=== PATIENT | female | born 1970 | race Caucasian/White ===

== ENCOUNTER 2016-08-29 10:17 | Emergency (ER) | payer OTHER ==
[~2016-08-29] VITALS: Ht 165.1 cm; Wt 66.0 kg
[~2016-08-29 10:17] MED LIST: ACET500C5 PO; AMLO5TAB4 PO; AMO500 PO; ATEN-51 PO; GUAI5LIQ8 PO; IBUP-1542 PO; NAPR-260 PO; ONDA4TAB35 PO; OSLT75C PO
[2016-08-29 10:20] VITALS: Ht 165.1 cm; Wt 66.0 kg
[2016-08-29] MEDS ORDERED: IBUPROFEN 600 MG TAB PO ONE (11:30)
--- NOTE | 2016-08-29 11:30 | RADRPT ---
PROCEDURE: XR Chest. CLINICAL INDICATION: cough TECHNIQUE: Single frontal view of the chest was obtained COMPARISON: 06/07/2015 FINDINGS: The heart and mediastinum are within normal limits. The lungs are clear. There is no pleural effusion or pneumothorax. IMPRESSION: No definite abnormalities are identified. RPTAT:AAJJ Liban Chiang Physician Date Time Electronically viewed and signed by Liban Chiang Physician on 08/29/2016 11:29 FÁTIMA/
[2016-08-29 11:33] LABS: URINE BLOOD (Dip) POC Negative (NEGATIVE)
[2016-08-29] MEDS ORDERED: ACET325T33 PO (12:57)
[2016-08-29] MEDS ORDERED: IBUP-1542 PO (12:57)
[2016-08-29] MEDS ORDERED: AZIT250T94 PO (12:57)
[2016-08-29 13:12] VITALS: BP 134/80; PULSE 78; RESP 20; TEMP 99
--- NOTE | 2016-08-29 14:30 | ERD ---
ER Documentation Chief Complaint Date/Time DATE: 08/29/16 TIME: 14:21 Chief Complaint fever , body ache , chills since last night HPI This is a 45-year-old female with a history of hypertension who presents to the ED with fever, generalized body ache, sore throat since last night. Patient received Tylenol last night. Denies nausea, vomiting, headache , cough, abdominal pain, shortness of breath, chest pain, dysuria or diarrhea. Denies any recent sick contacts or foreign travel. Patient states that she did not take any flu shot for the past season. Denies smoking, EtOH or illicit drug use. ROS All systems reviewed and are negative except as per history of present illness. Medications Home Meds Active Scripts Acetaminophen* (Tylenol*) 325 Mg Tablet, 2 TAB PO Q4 Y for PAIN AND OR ELEVATED TEMP, #20 TAB Prov:JAK BOWEN 08/29/16 Ibuprofen* (Motrin*) 600 Mg Tab, 600 MG PO Q6H Y for PAIN AND OR ELEVATED TEMP, #30 TAB Prov:JAK BOWEN 08/29/16 Azithromycin* (Zithromax*) 250 Mg Tablet, 250 MG PO .ZPACK DIRECTED, #6 TAB TAKE 500 MG (2 TABS) THE FIRST DAY THEN 250 MG (1 TAB) DAYS 2-5 Prov:JAK BOWEN 08/29/16 Amoxicillin* (Amoxicillin*) 500 Mg Cap, 500 MG PO TID for 10 Days, CAP Prov:PRISCILA ANDERSON DO 06/20/16 Oseltamivir Phosphate* (Tamiflu*) 75 Mg Capsule, 75 MG PO BID for 5 Days, CAP Prov:PATT SUBRAMANIAN PA-C 06/07/15 Guaifenesin/Codeine Phosphate (Guaiatussin AC Liquid) 5 Ml Liquid, 5 ML PO QHS, #120 ML Prov:PATT SUBRAMANIAN PA-C 06/07/15 Acetaminophen* (Tylophen*) 500 Mg Capsule, 1 CAP PO Q6H Y for PAIN AND OR ELEVATED TEMP, #20 CAP Prov:PATT SUBRAMANIAN PA-C 06/07/15 Ibuprofen* (Motrin*) 600 Mg Tab, 600 MG PO Q6, #30 TAB Prov:PATT SUBRAMANIAN PA-C 06/07/15 Ondansetron Hcl* (Zofran* ODT) 4 mg -ODT Tab.disper, 4 MG PO Q4H Y for NAUSEA AND OR VOMITING for 5 Days, TAB Prov:MAN MINAYA 03/08/15 Naproxen* (Naprosyn*) 500 Mg Tablet, 500 MG PO BID Y for PAIN AND/OR INFLAMMATION, #20 TAB Prov:KINA AMOS 09/21/14 Reported Medications Atenolol* (Atenolol*) 25 Mg Tablet, 25 MG PO DAILY, TAB 09/21/14 Amlodipine Besylate* (Norvasc*) 5 Mg Tablet, 5 MG PO DAILY, TAB 09/21/14 Allergies Allergies: Coded Allergies: No Known Drug Allergies (Verified Allergy, Mild, 09/21/14) PMhx/Soc History of Surgery: Yes (c section) Anesthesia Reaction: No Hx Neurological Disorder: No Hx Respiratory Disorders: No Hx Cardiac Disorders: Yes (htn) Hx Psychiatric Problems: No Hx Miscellaneous Medical Probl: No Hx Alcohol Use: No Hx Substance Use: No Hx Tobacco Use: No Smoking Status: Never smoker Physical Exam Vitals Vital Signs Date Time Temp Pulse Resp B/P Pulse Ox O2 Delivery O2 Flow Rate FiO2 08/29/16 13:12 99.0 78 20 134/80 99 Room Air 08/29/16 10:20 102.4 91 16 163/90 99 Physical Exam Physical Exam CONST: Well-developed, well-nourished, in no acute distress. Nontoxic in appearance. HEENT: Erythematous oropharynx with left tonsillar swelling and exudates. Normal conjunctiva. EOM intact. TM intact. External ear is normal. Moist mucous membranes. Supple neck. No meningismus. No submandibular induration. RESP: Clear to auscultation bilaterally. No wheezing. CARDIO: Regular rate and rhythm, no murmurs. ABD: Soft, non tender, non distended. Normal bowel sounds. No McBurney's point tenderness. No guarding or rigidity. No peritoneal signs. SKIN: No petechiae or rashes. BACK: No midline or flank tenderness. EXT: No cyanosis or edema. Distal pulses equal and bilateral. NEURO: Awake and alert, appropriate for age. 5/5 strength in all extremities. Normal speech. Steady gait. Results 24 hrs Laboratory Tests Test 08/29/16 11:35 Bedside Urine pH (LAB) 7.0 Bedside Urine Protein (LAB) Negative Bedside Urine Glucose (UA) Negative Bedside Urine Ketones (LAB) Negative Bedside Urine Blood Negative Bedside Urine Nitrite (LAB) Negative Bedside Urine Leukocyte Esterase (L Negative Current Medications Medications (Trade) Dose Ordered Sig/Delta Route PRN Reason Start Time Stop Time Status Last Admin Dose Admin Ibuprofen (Motrin) 600 mg ONCE ONCE PO 08/29/16 11:30 08/29/16 11:31 DC 08/29/16 11:27 PROCEDURE: XR Chest. CLINICAL INDICATION: cough TECHNIQUE: Single frontal view of the chest was obtained COMPARISON: 06/07/2015 FINDINGS: The heart and mediastinum are within normal limits. The lungs are clear. There is no pleural effusion or pneumothorax. IMPRESSION: No definite abnormalities are identified. RPTAT:AAJJ Physician Karla Date Time Electronically viewed and signed by Liban Chiang Physician on 08/29/2016 11:29 Procedures/[facility] EMERGENCY DEPARTMENT COURSE/MEDICAL DECISION MAKING This is a 45-year-old female who comes to the emergency room secondary to complaints of fever, chills, generalized body ache and sore throat since last night. The patient was given ibuprofen for a temp of 102.4. On re-evaluation, temperature improved to 99. Influenza a and B was ordered and is negative. Chest x-ray was ordered to rule out pneumonia and interpreted by a radiologist. Result is negative. Physical exam shows left tonsillar erythema and exudates. I believe this is the source of her fever. Patient's negative for influenza or pneumonia. My primary diagnosis is pharyngitis. Secondary diagnosis is fever. Differential diagnoses considered but not limited to pneumonia, bronchitis, influenza, upper respiratory infection, asthma, pharyngitis, peritonsillar abscess, otitis media, otitis externa.. Pt is hemodynamically stable upon reassessment. There are no new complaints during the ED course. The patient was discharged for outpatient management with a prescription for azithromycin, ibuprofen and Tylenol. The patient was advised to followup with their PMD in 1-2 days and to return to the Emergency Department if there are any new or worsening symptoms. The patient understood and agreed with the diagnosis, treatment and plan. Patient is stable for discharge at this time. Departure Diagnosis: Primary Impression: Pharyngitis Pharyngitis/tonsillitis etiology: unspecified etiology Qualified Code: J02.9 - Pharyngitis, unspecified etiology Additional Impression: Fever Fever type: unspecified Qualified Code: R50.9 - Fever, unspecified fever cause Condition: Stable Patient Instructions: Pharyngitis, Strep (Presumed) Additional Instructions: Llame a sevilla mdico de atencin primaria maana para hacer jamir marlee jasmyn los pr ximos to 1-2. Volver al Departamento de la emergencia inmediatamente si tiene cualquier s ntoma nuevo o que empeora. [place] todos los medicamentos clint lo indique. JAK BOWEN August 29, 2016 14:30
== END 2016-08-29 13:23 | disposition home or self-care (01) ==
LOC: FTE 10:17
DX: J02.9 Acute pharyngitis, unspecified (principal); I10 Essential (primary) hypertension
CPT/HCPCS: 71010; 81003; 87400; Z7502; Z7610

== ENCOUNTER 2016-11-14 22:20 | Emergency (ER) | payer OTHER ==
[~2016-11-14] VITALS: Ht 160 cm; Wt 98.1 kg
[~2016-11-14 22:20] MED LIST changes: +ACET325T33 PO; +AZIT250T94 PO
[2016-11-14 22:23] VITALS: Ht 160 cm; Wt 98.1 kg
--- NOTE | 2016-11-14 22:37 | ERA ---
ER Documentation Chief Complaint Date/Time DATE: 11/14/16 TIME: 22:36 Chief Complaint high bp HPI The patient is a 46-year-old female, presenting to the ER because of high blood pressure at home. She has been taking Norvasc 10 mg and atenolol 25 mg daily for many years and has not seen her physician for the last 6 months to recheck her blood pressure. She has been under a lot of stress and wanted to have her blood pressure rechecked today in the ER. She denies any headache, syncope, near syncope, neck pain, chest pain, dyspnea, abdominal pain, vomiting, dysuria , diarrhea. She does not smoke nor drink Past medical history: Hypertension Past surgical history: Four ROS All systems reviewed and are negative except as per history of present illness. Medications Home Meds Active Scripts Acetaminophen* (Tylenol*) 325 Mg Tablet, 2 TAB PO Q4 Y for PAIN AND OR ELEVATED TEMP, #20 TAB Prov:JAK BOWEN 08/29/16 Ibuprofen* (Motrin*) 600 Mg Tab, 600 MG PO Q6H Y for PAIN AND OR ELEVATED TEMP, #30 TAB Prov:JAK BOWEN 08/29/16 Azithromycin* (Zithromax*) 250 Mg Tablet, 250 MG PO .ZPACK DIRECTED, #6 TAB TAKE 500 MG (2 TABS) THE FIRST DAY THEN 250 MG (1 TAB) DAYS 2-5 Prov:JAK BOWEN 08/29/16 Amoxicillin* (Amoxicillin*) 500 Mg Cap, 500 MG PO TID for 10 Days, CAP Prov:PRISCILA ANDERSON DO 06/20/16 Oseltamivir Phosphate* (Tamiflu*) 75 Mg Capsule, 75 MG PO BID for 5 Days, CAP Prov:PATT SUBRAMANIAN-C 06/07/15 Guaifenesin/Codeine Phosphate (Guaiatussin AC Liquid) 5 Ml Liquid, 5 ML PO QHS, #120 ML Prov:PATT SUBRAMANIAN-C 06/07/15 Acetaminophen* (Tylophen*) 500 Mg Capsule, 1 CAP PO Q6H Y for PAIN AND OR ELEVATED TEMP, #20 CAP Prov:PATT SUBRAMANIAN-C 06/07/15 Ibuprofen* (Motrin*) 600 Mg Tab, 600 MG PO Q6, #30 TAB Prov:PATT SUBRAMANIANC 06/07/15 Ondansetron Hcl* (Zofran* ODT) 4 mg -ODT Tab.disper, 4 MG PO Q4H Y for NAUSEA AND OR VOMITING for 5 Days, TAB Prov:MAN MINAYA Laverne 03/08/15 Naproxen* (Naprosyn*) 500 Mg Tablet, 500 MG PO BID Y for PAIN AND/OR INFLAMMATION, #20 TAB Prov:BETTEKINA DAMON 09/21/14 Reported Medications Atenolol* (Atenolol*) 25 Mg Tablet, 25 MG PO DAILY, TAB 09/21/14 Amlodipine Besylate* (Norvasc*) 5 Mg Tablet, 5 MG PO DAILY, TAB 09/21/14 Allergies Allergies: Coded Allergies: No Known Drug Allergies (Verified Allergy, Mild, 09/21/14) PMhx/Soc History of Surgery: Yes (c section) Anesthesia Reaction: No Hx Neurological Disorder: No Hx Respiratory Disorders: No Hx Cardiac Disorders: Yes (htn) Hx Psychiatric Problems: No Hx Miscellaneous Medical Probl: No Hx Alcohol Use: No Hx Substance Use: No Hx Tobacco Use: No Physical Exam Vitals Vital Signs Date Time Temp Pulse Resp B/P Pulse Ox O2 Delivery O2 Flow Rate FiO2 11/14/16 23:30 66 17 145/91 100 Room Air 11/14/16 23:00 73 14 157/98 100 Room Air 11/14/16 22:43 85 17 168/98 100 Room Air 11/14/16 22:23 98.1 75 18 188/102 100 Physical Exam Const: No acute distress. Very anxious Head: Atraumatic. Eyes: Normal Conjunctiva. ENT: Normal External Ears, Nose and Mouth. Neck: Full range of motion. No meningismus. Resp: Clear to auscultation bilaterally. Cardio: Regular rate and rhythm. Abd: Soft, non distended, normal bowel sounds, non tender. Skin: No petechiae or rashes. Back: No midline or flank tenderness. Ext: No cyanosis, or edema. Neur: Awake and alert. No focal deficit Psych: Normal Mood and Affect. Result Diagram: 11/14/167 11/14/162256 Results 24 hrs Laboratory Tests Test 11/14/16 22:57 White Blood Count 7.310^3/ul Red Blood Count 4.3110^6/ul Hemoglobin 12.6g/dl Hematocrit 36.8% Mean Corpuscular Volume 85.4fl Mean Corpuscular Hemoglobin 29.2pg Mean Corpuscular Hemoglobin Concent 34.2g/dl Red Cell Distribution Width 13.1% Platelet Count 90221^3/UL Mean Platelet Volume 10.3fl Neutrophils % 58.3% Lymphocytes % 28.2% Monocytes % 9.9% Eosinophils % 2.1% Basophils % 1.4% Nucleated Red Blood Cells % 0.0/100WBC Neutrophils # 4.310^3/ul Lymphocytes # 2.110^3/ul Monocytes # 0.710^3/ul Eosinophils # 0.210^3/ul Basophils # 0.110^3/ul Nucleated Red Blood Cells # 0.010^3/ul Sodium Level 143mmol/L Potassium Level 3.5mmol/L Chloride Level 105mmol/L Carbon Dioxide Level 23mmol/L Anion Gap 19 Blood Urea Nitrogen 10mg/dl Creatinine 0.62mg/dl Glucose Level 109mg/dl Calcium Level 9.7mg/dl Current Medications Medications (Trade) Dose Ordered Sig/Delta Route PRN Reason Start Time Stop Time Status Last Admin Dose Admin Alprazolam (Xanax) 0.25 mg ONCE ONCE PO 11/14/16 23:00 11/14/16 23:01 DC 11/14/16 22:51 Procedures/MDM EKG: Read by emergency physician Rate/Rhythm: Normal Sinus Rhythm 72 beats/min QRS, ST, T-waves: No ST elevation, no T inversion Impression: Normal EKG MEDICAL MAKING DECISION: The patient is a 46-year-old female, presenting with acute accelerated hypertension, acute anxiety, acute stress. She was treated with Xanax 0.25 mg p.o. for her acute anxiety with good response. Her blood pressure improved The differential diagnoses considered include but are not limited to anxiety attack, panic attack, subarachnoid hemorrhage, occult trauma, CVA, meningitis, encephalitis, hypertension, tension, migraine, cluster, narcotic withdrawal, cervical spine disease. Departure Diagnosis: Primary Impression: Accelerated hypertension Additional Impressions: Anxiety Stress Condition: Good Comments I discussed the findings with the patient. I advised the patient to follow-up with the primary physician in about 1-2 days, sooner if needed and return if any concern. JOHN PAUL HYDE MD Nov 14, 2016 22:37
[2016-11-14] MEDS ORDERED: ALPRAZOLAM 0.25 MG TAB PO ONE (23:00)
[2016-11-14 23:13] LABS: BASOPHIL # 0.1 10^3/ul (0.0-0.1); BASOPHILS % 1.4 % (0.0-2.0); EOSINOPHILS # 0.2 10^3/ul (0.0-0.5); EOSINOPHILS % 2.1 % (0.0-7.0); HEMATOCRIT 36.8 % (37.0-47.0); HEMOGLOBIN 12.6 g/dl (12.0-16.0); LYMPHOCYTES # 2.1 10^3/ul (0.8-2.9); LYMPHOCYTES % 28.2 % (15.0-51.0); MEAN CORPUSCULAR HEMOGLOBIN 29.2 pg (29.0-33.0); MEAN CORPUSCULAR HGB CONC 34.2 g/dl (32.0-37.0); MEAN CORPUSCULAR VOLUME 85.4 fl (82.0-101.0); MEAN PLATELET VOLUME 10.3 fl (7.4-10.4); MONOCYTE # 0.7 10^3/ul (0.3-0.9); MONOCYTES % 9.9 % (0.0-11.0); NEUTROPHIL # 4.3 10^3/ul (1.6-7.5); NEUTROPHILS % 58.3 % (39.0-77.0); PLATELET COUNT 253 10^3/UL (140-415); RED BLOOD COUNT 4.31 10^6/ul (4.20-5.40); RED CELL DISTRIBUTION WIDTH 13.1 % (11.5-14.5); WHITE BLOOD COUNT 7.3 10^3/ul (4.8-10.8)
[2016-11-14 23:35] LABS: CALCIUM 9.7 mg/dl (8.4-10.2); CREATININE 0.62 mg/dl (0.44-1.00); POTASSIUM 3.5 mmol/L (3.5-5.1)
[2016-11-15 00:16] VITALS: BP 138/86; PULSE 66; RESP 15
== END 2016-11-15 00:15 | disposition home or self-care (01) ==
LOC: E/R 22:20
DX: I10 Essential (primary) hypertension (principal); R40.2252 Coma scale, best verbal response, oriented, at arrival to emergency department; F41.9 Anxiety disorder, unspecified; R40.2142 Coma scale, eyes open, spontaneous, at arrival to emergency department; R40.2362 Coma scale, best motor response, obeys commands, at arrival to emergency department
CPT/HCPCS: 36415; 80048; 85025; 93005; Z7502; Z7610

== ENCOUNTER 2018-05-11 21:49 | Emergency (ER) | payer OTHER ==
[~2018-05-11] VITALS: Ht 170.2 cm; Wt 69.9 kg
[~2018-05-11 21:49] MED LIST changes: -AMO500 PO; +AMOX500C2 PO; +AZIT250T PO; -AZIT250T94 PO; -NAPR-260 PO; +NAPR-985 PO; +OSEL75CA23 PO; -OSLT75C PO
[2018-05-11 21:52] VITALS: BP 179/110; PULSE 78; RESP 18; Ht 170.2 cm; Wt 69.9 kg
[2018-05-12] MEDS ORDERED: IBUP-1542 PO (00:32)
[2018-05-12] MEDS ORDERED: D-ME473S2 PO (00:32)
--- NOTE | 2018-05-12 00:36 | ERD ---
ER Documentation Chief Complaint Chief Complaint flu-liked symptoms (fever/body aches/HAs) x a week HPI This is a 47-year-old female denies significant past medical history presents ED with flulike symptoms for the past week. Patient admits to body aches, mild cough, headache. Denies fever, chills, chest pain, shortness of breath, trouble breathing, runny nose, sputum production, nausea, vomiting, diarrhea, constipation, neck pain other symptoms. No known drug allergies. ROS All systems reviewed and are negative except as per history of present illness. Medications Home Meds Active Scripts Ibuprofen* (Motrin*) 600 Mg Tab, 600 MG PO Q6, #30 TAB Prov:SHAYNA JOHNSON PA-C 05/12/18 Dextromethorphan Hb-Promethazine Hcl* (Promethazine DM* Syrup) 473 Ml Syrup, 5 ML PO Q6 PRN for COUGH for 5 Days, ML Prov:SHAYNA JOHNSON PA-C 05/12/18 Acetaminophen* (Tylenol*) 325 Mg Tablet, 2 TAB PO Q4 PRN for PAIN AND OR ELEVATED TEMP, #20 TAB Prov:JAK BOWEN 08/29/16 Ibuprofen* (Motrin*) 600 Mg Tab, 600 MG PO Q6H PRN for PAIN AND OR ELEVATED TEMP, #30 TAB Prov:JAK BOWEN 08/29/16 Azithromycin* (Zithromax*) 250 Mg Tablet, 250 MG PO .ZPACK DIRECTED, #6 TAB TAKE 500 MG (2 TABS) THE FIRST DAY THEN 250 MG (1 TAB) DAYS 2-5 Prov:JAK BOWEN 08/29/16 Amoxicillin* (Amoxicillin*) 500 Mg Cap, 500 MG PO TID for 10 Days, CAP Prov:PRISCILA ANDERSON DO 06/20/16 Oseltamivir Phosphate* (Tamiflu*) 75 Mg Capsule, 75 MG PO BID for 5 Days, CAP Prov:PATT SUBRAMANIAN PA-C 06/07/15 Guaifenesin/Codeine Phosphate (Guaiatussin AC Liquid) 5 Ml Liquid, 5 ML PO QHS, #120 ML Prov:PATT SUBRAMANIAN PA-C 06/07/15 Acetaminophen* (Tylophen*) 500 Mg Capsule, 1 CAP PO Q6H PRN for PAIN AND OR ELEVATED TEMP, #20 CAP Prov:MARILYNNPATT PA-C 06/07/15 Ibuprofen* (Motrin*) 600 Mg Tab, 600 MG PO Q6, #30 TAB Prov:MARILYNNPATT PA-C 06/07/15 Ondansetron Hcl* (Zofran* ODT) 4 mg -ODT Tab.disper, 4 MG PO Q4H PRN for NAUSEA AND OR VOMITING for 5 Days, TAB Prov:MAN MINAYA 03/08/15 Naproxen* (Naprosyn*) 500 Mg Tablet, 500 MG PO BID PRN for PAIN AND/OR INFLAMMATION, #20 TAB Prov:KINA AMOS MD 09/21/14 Reported Medications Atenolol* (Atenolol*) 25 Mg Tablet, 25 MG PO DAILY, TAB 09/21/14 Amlodipine Besylate* (Norvasc*) 5 Mg Tablet, 5 MG PO DAILY, TAB 09/21/14 Allergies Allergies: Coded Allergies: No Known Drug Allergies (Verified Allergy, Mild, 09/21/14) PMhx/Soc History of Surgery: Yes (c section) Anesthesia Reaction: No Hx Neurological Disorder: No Hx Respiratory Disorders: No Hx Cardiac Disorders: Yes (htn) Hx Psychiatric Problems: No Hx Miscellaneous Medical Probl: No Hx Alcohol Use: No Hx Substance Use: No Hx Tobacco Use: No FmHx Family History: No diabetes Physical Exam Vitals Vital Signs Date Temp Pulse Resp B/P (MAP) Pulse Ox O2 O2 Flow FiO2 Time Delivery Rate 05/11/18 97.5 78 18 179/110 98 21:52 (133) Physical Exam Physical Exam Vitals signs: Reviewed by me. General: Well developed, well nourished, in no acute distress. Patient is awake and alert. Head: Normocephalic, atraumatic. Eyes: Normal conjunctiva, Pupils PERRLA, EOM intact grossly ENT: Pharynx is clear, Moist mucous membranes, external ears, nose and mouth normal, no tonsillar adenopathy, exudate or erythema, no kissing tonsils, no uvula deviation, tympanic membrane visualized bilaterally no bulging, erythema, purulent air-fluid line seen Neck: Supple, no masses, lymphadenopathy or JVD Respiratory: Clear to auscultation bilaterally with no wheezing, rhonchi, rales, no distress Cardiovascular: RRR, no murmurs, rubs, or gallops Neurologic: Alert and oriented, moving all extremities, normal speech, no focal weakness, no cerebellar signs. Normal mentation Skin: warm and dry, No rash Psych: Normal mood Procedures/MDM ER COURSE: The patient was given Tessalon Perles, promethazine DM, ibuprofen The medication was well tolerated and the patient reports improvement in symptoms. The patient was stable throughout ED course. I kept the patient and/or family informed of laboratory and diagnostic imaging results throughout the emergency room course. The patient was promptly evaluated and a treatment plan was devised based on H&P and other data. This plan was discussed with the patient who agreed and had no further questions or concerns prior to discharge. MEDICAL DECISION MAKING: [This is a 47-year-old female who presents ED with flulike symptoms for the past week. This is likely an influenza-like syndrome. I offered patient influenza testing but she refuses at this time. Patient states that she would just like medication for body aches and cough and will follow up with her primary care physician tomorrow. Patient does have an elevated blood pressure reading in the emergency department but states that she recently just took medication for the evening. Patient states that her blood pressure is well controlled at home. Patient believes that the elevated blood pressure reading is due to the body aches. No evidence of hypertensive emergency. The patient's clinical presentation is very consistent with an acute viral syndrome. No evidence of pneumonia. The patient is well-appearing without respiratory distress. Normal oxygen saturation. X-ray imaging not indicated. No indication for Tamiflu. The patient does not exhibit any clinical signs or symptoms concerning for serious bacterial infection or systemic illness. Based on history and clinical exam findings the patient does not appear to have evidence of pneumonia, strep pharyngitis, urinary tract infection, bacteremia, sepsis, or meningitis. For these reasons I do not believe it is necessary to obtain laboratory testing or diagnostic imaging. I believe it would be appropriate for symptom control, and close outpatient primary care follow-up. We discussed follow up with the patient's primary care doctor within 24 to 48 hours as needed. We also discussed return to the emergency room for worsening symptoms or worsening condition. DISPOSITION PLAN: We discussed follow up with the patient's primary care doctor within 24 to 48 hours. Patient counseled regarding my diagnostic impression and care plan. Prior to discharge all questions answered. Pt agrees with treatment plan and understands strict return precautions. Precautionary instructions provided including instructions to return to the ER if not improving or for any worsening or changing symptoms or concerns. SPECIALIST FOLLOW UP RECOMMENDED: None Patient has been advised to follow up with primary care in 1-2 days. Disclaimer: Inadvertent spelling and grammatical errors are likely due to EHR/dictation software use and do not reflect on the overall quality of patient care. Also, please note that the electronic time recorded on this note does not necessarily reflect the actual time of the patient encounter. Blood Pressure Assessment: Patient's blood pressure was elevated (>120/80) but appears stable without evidence of hypertension emergency or urgency. The patient was counseled about the risks of hypertension and urged to pursue outpatient monitoring and therapy within a week with their primary care physician. Departure Diagnosis: Primary Impression: Influenza-like symptoms Condition: Stable Patient Instructions: Influenza (Adult) Referrals: MALIA CHILDRESS (PCP) [facility] YOU HAVE RECEIVED A MEDICAL SCREENING EXAM AND THE RESULTS INDICATE THAT YOU DO NOT HAVE A CONDITION THAT REQUIRES URGENT TREATMENT IN THE EMERGENCY DEPARTMENT. FURTHER EVALUATION AND TREATMENT OF YOUR CONDITION CAN WAIT UNTIL YOU ARE SEEN IN YOUR DOCTORS OFFICE WITHIN THE NEXT 1-2 DAYS. IT IS YOUR RESPONSIBILITY TO MAKE AN APPOINTMENT FOR FOLOW-UP CARE. IF YOU HAVE A PRIMARY DOCTOR --you should call your primary doctor and schedule an appointment IF YOU DO NOT HAVE A PRIMARY DOCTOR YOU CAN CALL OUR PHYSICIAN REFERRAL HOTLINE AT IF YOU CAN NOT AFFORD TO SEE A PHYSICIAN YOU CAN CHOSE FROM THE FOLLOWING [facility] [address] [facility]. [facility] [address] [facility] [address] [facility] [facility] [address] [facility]. [facility] [address] [facility] [facility]. [address] Additional Instructions: Patient advised to return to the ED immediately for new or worsening symptoms. Patient advised to follow up with primary care provider in the next 24-48 hours. Patient verbalized understanding and agrees with treatment plan and course of action. If patient has no primary care they may follow up with one of the community clinics listed on the following page or one of the options listed below [facility] + [address] [id number] or [facility] [id number] [place] [address] [id number] [address] SHAYNA JOHNSON PA-C May 12, 2018 00:36
[2018-05-12] MEDS ORDERED: PROMETHAZINE/DM (CUP) PO ONE (01:00)
[2018-05-12] MEDS ORDERED: BENZONATATE 100 MG CAP PO ONE (01:00)
[2018-05-12] MEDS ORDERED: IBUPROFEN 600 MG TAB PO ONE (01:00)
== END 2018-05-12 00:52 | disposition home or self-care (01) ==
LOC: FTE 21:49
DX: R50.9 Fever, unspecified (principal); R51 Headache; R05 Cough; I10 Essential (primary) hypertension
CPT/HCPCS: Z7502; Z7610; 99283

== ENCOUNTER 2018-11-21 14:39 | Emergency (ER) | payer OTHER ==
[~2018-11-21] VITALS: Ht 157.5 cm; Wt 69.2 kg
[~2018-11-21 14:39] MED LIST changes: +D-ME473S2 PO
[2018-11-21 14:53] VITALS: Ht 157.5 cm; Wt 69.2 kg
--- NOTE | 2018-11-21 15:22 | ERD ---
ER Documentation Chief Complaint Chief Complaint dizziness HPI The patient is a 48-year-old female, presenting to the ER because of d izziness/lower extremity weakness for 1 day, had similar symptoms previously when her blood pressure was high. She is taking Norvasc 5 mg and atenolol 25 mg daily, denies headache, syncope, near syncope, neck pain, chest pain, dyspnea, abdominal pain, vomiting, dysuria, diarrhea. She has a lot of stress in her life, denies smoking or drinking Past medical history: Hypertension Past surgical history: 1 ROS All systems reviewed and are negative except as per history of present illness. Medications Home Meds Active Scripts Ibuprofen* (Motrin*) 600 Mg Tab, 600 MG PO Q6, #30 TAB Prov:SHAYNA JOHNSON PA-C 05/12/18 Dextromethorphan Hb-Promethazine Hcl* (Promethazine DM* Syrup) 473 Ml Syrup, 5 ML PO Q6 PRN for COUGH for 5 Days, ML Prov:SHAYNA JOHNSON PA-C 05/12/18 Acetaminophen* (Tylenol*) 325 Mg Tablet, 2 TAB PO Q4 PRN for PAIN AND OR ELEVATED TEMP, #20 TAB Prov:JAK BOWEN 08/29/16 Ibuprofen* (Motrin*) 600 Mg Tab, 600 MG PO Q6H PRN for PAIN AND OR ELEVATED TEMP, #30 TAB Prov:JAK BOWEN 08/29/16 Azithromycin* (Zithromax*) 250 Mg Tablet, 250 MG PO .ZPACK DIRECTED, #6 TAB TAKE 500 MG (2 TABS) THE FIRST DAY THEN 250 MG (1 TAB) DAYS 2-5 Prov:JAK BOWEN 08/29/16 Amoxicillin* (Amoxicillin*) 500 Mg Cap, 500 MG PO TID for 10 Days, CAP Prov:PRISCILA ANDERSON DO 06/20/16 Oseltamivir Phosphate* (Tamiflu*) 75 Mg Capsule, 75 MG PO BID for 5 Days, CAP Prov:PATT SUBRAMANIAN PA-C 06/07/15 Guaifenesin/Codeine Phosphate (Guaiatussin AC Liquid) 5 Ml Liquid, 5 ML PO QHS, #120 ML Prov:PATT SUBRAMANIAN PA-C 06/07/15 Acetaminophen* (Tylophen*) 500 Mg Capsule, 1 CAP PO Q6H PRN for PAIN AND OR ELEVATED TEMP, #20 CAP Prov:PATT SUBRAMANIAN CHARLES 06/07/15 Ibuprofen* (Motrin*) 600 Mg Tab, 600 MG PO Q6, #30 TAB Prov:PATT SUBRAMANIAN CHARLES 06/07/15 Ondansetron Hcl* (Zofran* ODT) 4 mg -ODT Tab.disper, 4 MG PO Q4H PRN for NAUSEA AND OR VOMITING for 5 Days, TAB Prov:MAN MINAYA 03/08/15 Naproxen* (Naprosyn*) 500 Mg Tablet, 500 MG PO BID PRN for PAIN AND/OR INFLAMMATION, #20 TAB Prov:KINA AMOS MD 09/21/14 Reported Medications Atenolol* (Atenolol*) 25 Mg Tablet, 25 MG PO DAILY, TAB 09/21/14 Amlodipine Besylate* (Norvasc*) 5 Mg Tablet, 5 MG PO DAILY, TAB 09/21/14 Allergies Allergies: Coded Allergies: No Known Drug Allergies (Verified Allergy, Mild, 09/21/14) PMhx/Soc History of Surgery: Yes (c section) Anesthesia Reaction: No Hx Neurological Disorder: No Hx Respiratory Disorders: No Hx Cardiac Disorders: Yes (htn) Hx Psychiatric Problems: No Hx Miscellaneous Medical Probl: No Hx Alcohol Use: No Hx Substance Use: No Hx Tobacco Use: No Physical Exam Vitals Vital Signs Date Temp Pulse Resp B/P (MAP) Pulse Ox O2 O2 Flow FiO2 Time Delivery Rate 11/21/18 98.1 72 18 155/91 98 Room Air 17:37 (112) 11/21/18 98.8 71 22 166/98 98 14:53 (120) Physical Exam Const: No acute distress. Head: Atraumatic. Eyes: Normal Conjunctiva. ENT: Normal External Ears, Nose and Mouth. Neck: Full range of motion. No meningismus. Resp: Clear to auscultation bilaterally. Cardio: Regular rate and rhythm. Abd: Soft, non distended, normal bowel sounds, non tender. Skin: No petechiae or rashes. Back: No midline or flank tenderness. Ext: No cyanosis, or edema. Minimal bilateral popliteal fossa tenderness Neur: Awake and alert. No focal deficit Psych: Normal Mood and Affect. Result Diagram: 11/21/18 5877 11/21/18 1547 Results 24 hrs Laboratory Tests Test 11/21/18 15:47 11/21/18 15:54 White Blood Count 10.1 10^3/ul Red Blood Count 4.44 10^6/ul Hemoglobin 13.1 g/dl Hematocrit 39.5 % Mean Corpuscular Volume 89.0 fl Mean Corpuscular Hemoglobin 29.5 pg Mean Corpuscular Hemoglobin Concent 33.2 g/dl Red Cell Distribution Width 12.3 % Platelet Count 297 10^3/UL Mean Platelet Volume 10.3 fl Immature Granulocytes % 0.300 % Neutrophils % 70.1 % Lymphocytes % 19.3 % Monocytes % 6.1 % Eosinophils % 3.0 % Basophils % 1.2 % Nucleated Red Blood Cells % 0.0 /100WBC Immature Granulocytes # 0.030 10^3/ul Neutrophils # 7.1 10^3/ul Lymphocytes # 2.0 10^3/ul Monocytes # 0.6 10^3/ul Eosinophils # 0.3 10^3/ul Basophils # 0.1 10^3/ul Nucleated Red Blood Cells # 0.0 10^3/ul Sodium Level 144 mmol/L Potassium Level 4.1 mmol/L Chloride Level 108 mmol/L Carbon Dioxide Level 28 mmol/L Anion Gap 8 Blood Urea Nitrogen 14 mg/dl Creatinine 0.56 mg/dl Est Glomerular Filtrat Rate mL/min > 60 mL/min Glucose Level 103 mg/dl Calcium Level 9.7 mg/dl Beta HCG, Quantitative < 2.4 mIU/ml Bedside Glucose 104 mg/dL Current Medications Medications Dose Sig/Delta Start Time Status Last (Trade) Ordered Route PRN Stop Time Admin Dose Reason Admin Alprazolam 0.25 mg ONCE ONCE 11/21/18 DC 11/21/18 (Xanax) PO 16:00 11/21/18 16:08 16:01 Procedures/[place] [id number] Radiology Main Line: [phone] DIAGNOSTIC IMAGING REPORT Patient: COURTNEY CAMACHO : 1970 Age: 48 Sex: F MR #: [id number] DOS: 11/21/18 1540 Ordering MD: JOHN PAUL HYDE MD Location: [facility] Room/Bed: PROCEDURE: US Lower extremity Venous. CLINICAL INDICATION: Bilateral lower extremity edema TECHNIQUE: Multiple sonographic images of the bilateral lower extremity deep venous system was obtained utilizing grayscale, color-flow, compressive sonogra phy and doppler imaging with augmentation. The images were reviewed on a PACS workstation. COMPARISON: None. FINDINGS: There is normal compressibility and flow within the right common femoral, femoral , posterior tibial and popliteal veins. There is normal compressibility and flow within the left common femoral, femoral , posterior tibial and popliteal veins. RPTAT: AA IMPRESSION: No sonographic evidence for deep venous thrombosis. .Desmond Carr MD, Date Time Electronically viewed and signed by .Desmond Carr MD, MD on 11/21/2018 16:11 .S/ CC: JOHN PAUL HYDE MD [id number] EKG: Read by emergency physician Rate/Rhythm: Normal Sinus Rhythm 80 beats/min QRS, ST, T-waves: No ST elevation, no T inversion Impression: Normal EKG MEDICAL MAKING DECISION: The patient is a 48-year-old female, presenting with acute anxiety, accelerated hypertension She was treated with Xanax 0.25 mg p.o. for acute anxiety with good response, blood pressure improved The differential diagnoses considered include but are not limited to anxiety attack, panic attack, leg spasm, DVT, medical noncompliance Departure Diagnosis: Primary Impression: HTN (hypertension) Additional Impression: Anxiety Condition: Good Comments I discussed the findings with the patient. I advised the patient to follow-up with the primary physician in about 1-2 days, sooner if needed and return if any concern. Disclaimer: Inadvertent spelling and grammatical errors are likely due to EHR/dictation software use and do not reflect on the overall quality of patient care. Also, please note that the electronic time recorded on this note does not necessarily reflect the actual time of the patient encounter. JOHN PAUL HYDE MD Nov 21, 2018 15:22
[2018-11-21] MEDS ORDERED: ALPRAZOLAM 0.25 MG TAB PO ONE (16:00)
[2018-11-21 17:37] VITALS: BP 155/91; PULSE 72; RESP 18
== END 2018-11-21 17:38 | disposition home or self-care (01) ==
LOC: FTE 14:39
DX: I10 Essential (primary) hypertension (principal); F41.9 Anxiety disorder, unspecified
CPT/HCPCS: 36415; 80048; 82962; 84702; 85025; 93005; 93970; Z7502; Z7610